=== PATIENT | female | born 1955 | race Caucasian/White ===

== ENCOUNTER 2016-12-07 08:55 | Outpatient (CLI) | payer BC ==
[~2016-12-07] VITALS: Ht 160 cm; Wt 90.3 kg
[~2016-12-07 08:55] MED LIST changes: -BUPR150T7 PO; -CETI10TA9 PO; -MELO7.5T46 PO
[2016-12-07 09:04] VITALS: BP 156/85
[2016-12-07] MEDS ORDERED: BUPR150T7 PO (09:14)
[2016-12-07] MEDS ORDERED: LISI1TAB6 PO (09:14)
[2016-12-07] MEDS ORDERED: CETI10TA9 PO (09:14)
[2016-12-07] MEDS ORDERED: MELO7.5T46 PO (09:14)
[2016-12-07 09:35] LABS: BILIRUBIN,URINE NEGATIVE (NEGATIVE); KETONES,URINE NEGATIVE (NEGATIVE); LEUKOCYTE ESTERASE ,URINE 1+ (NEGATIVE); NITRITE,URINE NEGATIVE (NEGATIVE); PH,URINE 6.5 (5-9); PROTEIN,URINE NEGATIVE (NEGATIVE); UROBILINOGEN,URINE NORMAL (NORMAL)
[2016-12-07 09:36] LABS: BASOPHILS % (AUTO) 1 % (0-10); EOSINOPHILS # (AUTO) 0.2 10^3/uL (0.0-0.3); EOSINOPHILS % (AUTO) 3 % (0-10); LYMPHOCYTES # (AUTO) 2.6 X 10^3 (1.0-4.0); LYMPHOCYTES % (AUTO) 37 % (12-44); MEAN CORPUSCULAR HEMOGLOBIN 31 PG (25-34); MEAN CORPUSCULAR HGB CONC 33 G/DL (32-36); MEAN CORPUSCULAR VOLUME 94 FL (80-99); MEAN PLATELET VOLUME 8.6 FL (7.4-10.4); MONOCYTES # (AUTO) 0.7 X 10^3 (0.0-1.0); MONOCYTES % (AUTO) 9 % (0-12); NEUTROPHILS # (AUTO) 3.7 X 10^3 (1.8-7.8); NEUTROPHILS % (AUTO) 51 % (42-75); PLATELET COUNT 438 10^3/uL (130-400); RED BLOOD COUNT 4.22 10^6/uL (4.35-5.85); RED CELL DISTRIBUTION WIDTH 12.7 % (10.0-14.5); WHITE BLOOD COUNT 7.2 10^3/uL (4.3-11.0)
[2016-12-07 09:47] LABS: WBC,URINE RARE /HPF
[2016-12-07 09:55] LABS: ANION GAP 9 MMOL/L (5-14); BLOOD UREA NITROGEN 14 MG/DL (7-18); BUN/CREATININE RATIO 15 (0-20); CALCIUM 9.7 MG/DL (8.5-10.1); CARBON DIOXIDE 27 MMOL/L (21-32); CHLORIDE 102 MMOL/L (98-107); CREATININE SERUM 0.92 MG/DL (0.60-1.30); GFR ESTIMATED > 60; GLUCOSE 105 MG/DL (70-105); HEMOLYSIS NN 5 (0); ICTERUS NN 1.1 (0); LIPEMIA NN 6 (0); POTASSIUM 4.2 MMOL/L (3.6-5.0); SODIUM 138 MMOL/L (135-145)
== END 2016-12-07 09:27 | disposition home or self-care (01) ==
LOC: PREOP 08:55
PROVIDERS: ATTEND Obstetrics & Gynecology
DX: Z01.812 Encounter for preprocedural laboratory examination (principal); Z11.2 Encounter for screening for other bacterial diseases; N81.2 Incomplete uterovaginal prolapse; N39.3 Stress incontinence (female) (male)
CPT/HCPCS: 36415; 80048; 81000; 85025; 86850; 86900; 86901; 87081

== ENCOUNTER → 2016-12-07 | Outpatient (CLI) | payer BC ==
[~2016-12-07] MED LIST: ACYC200C PO; ASP81TEC PO; BUPR150T PO; BUPR150T6 PO; BUPR150T7 PO; CALC-78 PO; CETI10CA PO; CETI10TA9 PO; CIPR500T4 PO; ESTR1TAB15 PO; ESTR1TAB76 PO; FLUT9.9S NS; HYDR-3730 PO; LISI10TA2 PO; LISI1TAB6 PO; MELO15TA39 PO; MELO7.5T46 PO; MIRA25TA PO; MTF500T PO; NAPR220C11 PO; NEBI5TAB8 PO; NITR100C3 PO; NTR50C PO; OXYC-12 PO; PANT40VI7 PO; SOLI10TA4 PO
--- NOTE | 2016-12-07 08:24 | Diagnostic Imaging Report ---
Left breast diagnostic mammogram. CAD is utilized. The current study was also evaluated with a Computer Aided Detection (CAD) system. COMPARISON: 06/14/16. FINDINGS: The left breast demonstrate scattered fibroglandular densities. There are occasional benign-appearing calcifications seen. The previously seen focal asymmetry in the medial aspect of the left breast is less prominent on this exam with suggestion of a faint smaller nodule that has a central notch likely representing an intramammary lymph node. Impression: Smaller now faint focal asymmetry in the medial aspect of the left breast is likely an intramammary lymph node. Ultrasound evaluation pending. BI-RADS 0. ACR BI-RADS Category 0: Incomplete. (Needs additional imaging evaluation). Result letter will be mailed to the patient. Note: At least 10% of breast cancer is not imaged by mammography. Dictated by: Dictated on workstation # [id number]
--- NOTE | 2016-12-07 09:19 | Diagnostic Imaging Report ---
EXAMINATION: Left breast ultrasound. INDICATION: Followup lesion at the 10:30 o'clock position. FINDINGS: The previously seen lesion at the 10:30 o'clock position 7 cm from the nipple has resolved with no definite remaining abnormality seen. IMPRESSION: Negative study. Annual screening mammography is recommended. ACR BI-RADS Category 2: Benign findings. Dictated by: Dictated on workstation # [id number]
== END ==
LOC: RAD 08:01
PROVIDERS: ATTEND Nurse Practitioner
DX: R92.8 Other abnormal and inconclusive findings on diagnostic imaging of breast (principal)
CPT/HCPCS: 76642

== ENCOUNTER 2016-12-14 06:00 | Day surgery (SDC) | payer BC ==
[~2016-12-14] VITALS: Ht 160 cm; Wt 90.3 kg
[~2016-12-14 06:00] MED LIST changes: +BUPR150T7 PO; +CETI10TA9 PO; +MELO7.5T46 PO
[2016-12-14] MEDS ORDERED: metroNIDAZOLE 500MG/100ML IVPB 100 ML ONE (06:15)
[2016-12-14] MEDS ORDERED: ceFAZolin 1,000 MG (ANCEF) VIAL ONE (06:15)
[2016-12-14] MEDS ORDERED: NS (IVPB) 50 ML ONE (06:15)
[2016-12-14 06:43] VITALS: BP 142/84
[2016-12-14] MEDS: LACTATED RINGERS 1,000 ML IV PRN ×2 (06:47→08:55)
[2016-12-14] MEDS ORDERED: ONDANSETRON 4 MG/2 ML (SDV) Z0FRAN ONE (06:50)
[2016-12-14] MEDS ORDERED: SEVOFLURANE (ULTANE) 15 ML INHAL SOLN ONE ×13 (06:50→11:08)
[2016-12-14] MEDS ORDERED: fentaNYL INJECTION 250 MCG/5 ML AMP ONE (06:50)
[2016-12-14] MEDS ORDERED: LACTATED RINGERS 1,000 ML IV ONE ×2 (06:50→08:36)
[2016-12-14] MEDS ORDERED: LIDOCAINE PF 2% 5 ML (XYLOCAINE) VIAL ONE (06:50)
[2016-12-14] MEDS ORDERED: proPOfol 200 MG/20 ML (DIPRIVAN) VIAL IV ONE (06:50)
[2016-12-14] MEDS ORDERED: ROCURONIUM 50 MG/5 ML (ZEMURON) VIAL IV ONE ×2 (06:50→09:36)
[2016-12-14] MEDS ORDERED: MIDAZOLAM 2 MG/2 ML (VERSED) VIAL ONE (06:50)
[2016-12-14] MEDS ORDERED: metroNIDAZOLE 500 MG/100 ML IVPB (PRE-MIX) IV ONE (07:00)
[2016-12-14] MEDS ORDERED: ceFAZolin 1 GM/NS 50 ML IVPB IV ONE ×2 (07:00)
--- NOTE | 2016-12-14 07:14 | History & Physical-Surgical ---
HPO-Surgical History of Present Illness Chief Complaint: Incomplete pelvic prolapse Diagnosis/Surgical Indication: Incomplete Pelvic Prolapse, stress incontinence Procedure: ROBOTIC HYSTERECTOMY WITH BSO, ANTERIOR AND POSTERIOR COLPORRHAPHY , PUBOVAGINAL SLING Date of Surgery: Dec 14, 2016 Weight (Pounds): 199 Weight (Ounces): 0.0 Height (Feet): 5 Height (Inches): 3.00 Allergies and Home Medications Allergies Coded Allergies: ibuprofen (Verified Allergy, Severe, LUMP IN THROAT, 02/17/15) Home Medications Bupropion HCl 150 Mg Tab.er.24h, 150 MG PO DAILY, (Reported) Cetirizine HCl 10 Mg Tablet, 10 MG PO DAILY, (Reported) Lisinopril/Hydrochlorothiazide 1 Each Tablet, 1 EACH PO DAILY, (Reported) Meloxicam 7.5 Mg Tablet, 7.5 MG PO DAILY, (Reported) Past Lalfdrz-Pghphu-Cjkukr Hx Patient Social History Marrital Status: Alcohol Use: Denies Use Recreational Drug Use: No Smoking Status: Never a Smoker Recent Foreign Travel: No Contact w/other who traveled: No Recent Hopitalizations: No Recent Infectious Disease Expo: No Immunizations Up To Date Tetanus Booster (TDap): More than 5yrs Date of Pneumonia Vaccine: Jun 08, 2012 Date of Influenza Vaccine: Mar 27, 2013 Seasonal Allergies Seasonal Allergies: Yes Surgeries HX Surgeries: Yes (Uterine ablation, left ankle surgery, left meniscus, left rotator cuff, ) Surgeries: Gallbladder Respiratory Hx Respiratory Disorders: No Cardiovascular Hx Cardiovascular Disorders: Yes Cardiac Disorders: Hypertension Neurological Hx Neurological Disorders: No Reproductive System : No Hx Reproductive Disorders: Yes Sexually Transmitted Disease: No HIV/AIDS: No Female Reproductive Disorders: Denies Genitourinary Hx Genitourinary Disorders: Yes Genitourinary Disorders: UTI-Chronic Gastrointestinal Hx Gastrointestinal Disorders: No Musculoskeletal Hx Musculoskeletal Disorders: Yes (left ankle break) Musculoskeletal Disorders: Arthritis, Fractures Endocrine Hx Endocrine Disorders: No Endocrine Disorders: Diabetes, Non-Insulin dep HEENT HX ENT Disorders: No Hearing Impairment: Denies Cancer Hx Cancer: Yes Cancer: Skin Psychosocial Hx Psychiatric Problems: No Behavioral Health Disorders: Depression Integumentary HX Skin/Integumentary Disorder: No (2 skin cancer's removed) Blood Transfusions Hx Blood Disorders: No Adverse Reaction to a Blood Tr: No Family Medical History Family Hx: Cancer 03 MOTHER Family history: Diabetes mellitus 03 FATHER 09 BROTHER Family history: Hypertension 03 MOTHER Myocardial infarction 03 FATHER Exam Vital Signs Vital Signs 12/14/16 06:43 Temp 98.7 Pulse 66 Resp 18 B/P (MAP) 142/84 Pulse Ox 97 O2 Delivery Room Air Capillary Refill : General Appearance: Alert, Oriented X3 Respiratory: Clear to Auscultation, Normal Air Movement Cardiovascular: Regular Rate Abdominal: Other (pelvic exam will be repeated during surgery) Assessment/Plan Assessment and Plan Incomplete pelvic prolapse Stress incontinence Plan: Robotic assisted vaginal hysterectomy, anterior posterior colporrhaphy, Solyx pubovaginal sling This will be done on 12/14/16. Patient has completed childbearing (she is menopausal) and understands that once uterus has been removed, she will be unable to bear children. The risks of the procedure include but are not limited to: injury to bowel, bladder and ureter, infection, bleeding, risks associated with anesthesia, blood clot/dvt. There is also a 40% chance of reoperation in the future, need for medication for urgency postoperatively, urinary retention. Problems: MANNIE BOWLES DO Dec 14, 2016 07:14
[2016-12-14] MEDS ORDERED: ESTROGENS CONJ. CREAM 30 GM (PREMARIN) TUBE ONE (07:15)
[2016-12-14] MEDS ORDERED: BUP/EPI 0.25% 1:200,000 (MARCAINE) 10 ML VIAL IJ ONE (07:15)
[2016-12-14] MEDS ORDERED: OXYTOCIN (PITOCIN) 10 UNIT/ML VIAL ONE (07:34)
[2016-12-14] MEDS ORDERED: NS (IVPB) 100 ML ONE (07:35)
[2016-12-14] MEDS ORDERED: VASOPRESSIN INJECTION 20 UNIT/ML VIAL ONE (07:37)
--- NOTE | 2016-12-14 07:47 | Progress Note-Pre Operative ---
Pre-Operative Progress Note H&P Reviewed The H&P was reviewed, patient examined and no changes noted. Date Seen by Provider: Dec 14, 2016 Time Seen by Provider: 07:30 Date H&P Reviewed: Dec 14, 2016 Time H&P Reviewed: 07:15 Pre-Operative Diagnosis: incomplete genital prolapse, stress incontinence MANNIE BOWLES DO Dec 14, 2016 07:47
[2016-12-14] MEDS: KETOROLAC 30 MG/ML VIAL IV PRN ×2 (11:00→17:45)
[2016-12-14] MEDS ORDERED: ANTACID SUSP 30 ML UDC (MYLANTA) PO PRN (11:15)
[2016-12-14] MEDS ORDERED: KETOROLAC 30 MG/ML VIAL IVP PRN (11:15)
[2016-12-14] MEDS ORDERED: HYDROcodone/APAP 7.5 MG/325 MG (LORTAB, LORCET PLUS) TABLET PO PRN (11:15)
[2016-12-14] MEDS ORDERED: SIMETHICONE 80 MG (MYLICON) CHEW PO PRN (11:15)
[2016-12-14] MEDS ORDERED: DOCUSATE SODIUM 100 MG (COLACE) CAP PO PRN (11:15)
[2016-12-14] MEDS ORDERED: ONDANSETRON 4 MG/2 ML (SDV) Z0FRAN IV PRN (11:15)
--- NOTE | 2016-12-14 11:22 | Operative Report ---
Operative Report Date of Procedure/Surgery Dec 14, 2016 Surgeon (s) MANNIE BOWLES DO Fifth Hand (s): Kimmie Loredo APRN. Fifth Hand necessary to retract important neurovascular st Post-Operative Diagnosis Incomplete genital prolapse NIKIA Procedure Performed RaTH, BSO, Anterior posterior colporrhaphy, perineorrhaphy, Solyx vaginal sling Description of Procedure Anesthesia Type: General Estimated blood loss (mL): 200 Specimen(s) collected/removed uterus tubes and ovaries Packing: vaginal with estrace cream Allergies and Home Medications Allergies Coded Allergies: naproxen (Verified Allergy, Severe, lump in throat, 12/14/16) able to take other antiinflammatories. Only had reaction to Aleve Home Medications Bupropion HCl 150 Mg Tab.er.24h, 150 MG PO DAILY, (Reported) Cetirizine HCl 10 Mg Tablet, 10 MG PO DAILY, (Reported) Lisinopril/Hydrochlorothiazide 1 Each Tablet, 1 EACH PO DAILY, (Reported) Meloxicam 7.5 Mg Tablet, 7.5 MG PO DAILY, (Reported) MANNIE BOWLES DO Dec 14, 2016 11:22
[2016-12-14] MEDS ORDERED: lisINopril 10 MG (PRINIVIL) TAB PO SCH (11:30)
[2016-12-14] MEDS ORDERED: HYDROmorphone (DILAUDID) 2 MG/ML VIAL IVP PRN ×2 (11:45→16:30)
[2016-12-14] MEDS ORDERED: ONDANSETRON 4 MG/2 ML (SDV) Z0FRAN IVP PRN (11:45)
[2016-12-14] MEDS: morphine INJ 10 MG/ML 1ML (SYR OR VIAL) IVP PRN ×2 (11:52→11:58)
[2016-12-14 12:35] VITALS: BP 122/70
[2016-12-14] MEDS: LACTATED RINGERS 1,000 ML IV SCH ×4 (12:48→22:10)
[2016-12-14 14:12] VITALS: BP 113/65
[2016-12-14] MEDS: buPROPion SR 150 MG (WELLBUTRIN SR) TAB PO SCH (14:15)
[2016-12-14] MEDS: lisINopril 10 MG (PRINIVIL) TAB PO SCH (14:16)
[2016-12-14] MEDS: HYDROCHLOROTHIAZIDE 25 MG (HCTZ) TAB PO SCH (14:16)
[2016-12-14] MEDS ORDERED: PROMETHAZINE INJ 25 MG/ML (PHENERGAN) AMP IVP PRN (16:30)
[2016-12-14 17:45] VITALS: BP 117/66
[2016-12-14 20:00] VITALS: BP 114/68
[2016-12-14 20:03] LABS: ANION GAP 11 MMOL/L (5-14); BLOOD UREA NITROGEN 12 MG/DL (7-18); BUN/CREATININE RATIO 13 (0-20); CALCIUM 8.9 MG/DL (8.5-10.1); CARBON DIOXIDE 24 MMOL/L (21-32); CHLORIDE 103 MMOL/L (98-107); CREATININE SERUM 0.93 MG/DL (0.60-1.30); GFR ESTIMATED > 60; GLUCOSE 149 MG/DL (70-105); HEMOLYSIS 4 (-100-29); ICTERUS 0.6 (-100-1.9); LIPEMIA 1 (-100-49); POTASSIUM 4.2 MMOL/L (3.6-5.0); SODIUM 138 MMOL/L (135-145)
[2016-12-14] MEDS ORDERED: NS IV 500 ML 500 ML IV SCH (21:15)
[2016-12-14] MEDS ORDERED: FUROSEMIDE 40 MG/4 ML INJ (LASIX) IVP ONE (21:15)
[2016-12-15] VITALS: BP 110/64
[2016-12-15] MEDS: LACTATED RINGERS 1,000 ML IV SCH ×2 (02:14→06:25)
[2016-12-15] MEDS ORDERED: IBUPROFEN 600 MG (MOTRIN) TAB PO PRN (04:00)
[2016-12-15 04:19] VITALS: BP 108/57
[2016-12-15 05:28] LABS: ANION GAP 12 MMOL/L (5-14); BLOOD UREA NITROGEN 12 MG/DL (7-18); BUN/CREATININE RATIO 15 (0-20); CALCIUM 8.5 MG/DL (8.5-10.1); CARBON DIOXIDE 23 MMOL/L (21-32); CHLORIDE 103 MMOL/L (98-107); CREATININE SERUM 0.82 MG/DL (0.60-1.30); GFR ESTIMATED > 60; GLUCOSE 123 MG/DL (70-105); HEMOLYSIS 6 (-100-29); ICTERUS 0.6 (-100-1.9); LIPEMIA 14 (-100-49); POTASSIUM 3.7 MMOL/L (3.6-5.0); SODIUM 138 MMOL/L (135-145)
[2016-12-15 08:00] VITALS: BP 120/67
--- NOTE | 2016-12-15 08:18 | Progress Note-Standard ---
Standard Progress Note Progress Notes/Assess & Plan Date Seen 12/15/16 Time Seen by Provider: 08:05 Assess & Plan/Chief Complaint POD#1 Pt without complaints other than bladder pressure, "feeling constant need to pee " Pain controlled Has ambulated and voided 3x (missed hat last time) Has tolerated diet without n/v Vaginal packing removed by RN O: Vital Sign - Last 12Hours 12/14/16 12/15/16 12/15/16 21:00 00:00 04:19 Temp 97.3 97.9 Pulse 65 85 Resp 16 19 B/P (MAP) 110/64 108/57 Pulse Ox 97 97 O2 Delivery Room Air Room Air Room Air Intake and Output 12/15/16 00:00 Intake Total 1000 ml Output Total 280 ml Balance 720 ml Gen NAD Abd soft nttp lap sites covered with bandages A/P: 61 y/o s/p RaTH, BSO, Anterior posterior colporrhaphy, perineorrhaphy, Solyx vaginal sling by Dr. Jimenez, POD#1 Routine post-op care Asked RN to obtain PVR after next void to ensure no retention SLIV Dr. Jimenez to see patient this AM prior to discharge Labs Laboratory Tests 12/14/16 19:42 12/15/16 04:36 JESSICA PLATA MD Dec 15, 2016 08:18
[2016-12-15] MEDS: HYDROCHLOROTHIAZIDE 25 MG (HCTZ) TAB PO SCH (08:42)
[2016-12-15] MEDS: lisINopril 10 MG (PRINIVIL) TAB PO SCH (08:43)
[2016-12-15] MEDS: buPROPion SR 150 MG (WELLBUTRIN SR) TAB PO SCH (08:43)
[2016-12-15] MEDS ORDERED: buPROPion XL 150 MG (WELLBUTRIN XL) NON-FORM PO SCH (09:00)
[2016-12-15] MEDS ORDERED: SIME80TA16 PO (10:06)
[2016-12-15] MEDS ORDERED: HYDR-3816 PO (10:06)
[2016-12-15] MEDS ORDERED: DOCU100C37 PO (10:06)
[2016-12-15] MEDS ORDERED: IBUP-1773 PO (10:06)
--- NOTE | 2016-12-15 11:54 | Discharge Inst-Women's Service ---
Discharge Inst-Women's Serv Depart Medication/Instructions New, Converted or Re-Newed RX: RX on Chart Instructions no lifting over 25 lbs. Follow up with Dr. Navarro regarding elevated blood sugars Keep dressings intact unless soiled or wet Final Diagnosis genital prolapse stress incontinence hyperglycemia hypertension Consults/Follow Up Additional Follow Up: Yes (1 weeks with Jimenez/Kimmie and 10-12 weeks with Jimenez. Hold estrace cream until about 4-6 weeks post op) Activity Driving Instructions: No Driving for 1 Week NO SMOKING: NO SMOKING Nothing Inside Vagina: No Douching, No [place], No Tampons Diet Discharge Diet: ADA Diet Symptoms to Report to : Swelling Increased, Bleeding Excessive, Pain Increased, Fever Over 101 Degrees F, Vaginal Bleeding Increase, Vaginal Discharge Foul For Any Problems or Questions: Contact Your Physician Skin/Wound Care Infection Signs and Symptoms: Increased Redness, Foul Odor of Wound, Increased Drainage, Skin Itchy or Has a Rash, Increased Swelling, Temperature Above 101 F Operative Area Clean and Dry: Keep Incision Clean/Dry Bathing Instructions: MANNIE Bronson DO Dec 15, 2016 11:54 am
[2016-12-15 12:40] VITALS: BP 108/57
[2016-12-15] MEDS ORDERED: HYDROCHLOROTHIAZIDE 25 MG (HCTZ) TAB PO SCH (13:00)
[2016-12-16] MEDS ORDERED: MELOXICAM 7.5 MG (MOBIC) TABLET PO SCH (09:00)
--- OUTSIDE RECORDS SUMMARY | 2016-12-16 14:15 | XMS REPORT | Continuity of Care Document ---
Author Author [facility] Organization [facility] Address Unknown Phone Unavailable Allergies Active Description Code Type Severity Reaction Onset Reported/Identified Relationship to Patient Clinical Status Yes No Known Drug Allergies [id number] Drug Allergy Unknown N/ A 05/07/2013 Yes ibuprofen [id number] Drug Allergy Severe LUMP IN THROAT 10/17/2015 Yes naproxen [id number] Drug Allergy Severe lump in throat 12/14/2016 Medications Problems Date Dx Coded Attending Type Code Diagnosis Diagnosed By 01/25/2014 JAMAL KOHLI MD Ot 535.50 UNSP GASTRITIS GASTRODUODENITIS W/O ME 02/04/2015 ELOINA PHIPPS MD Ot 401.9 HYPERTENSION NOS 02/04/2015 ELOINA PHIPPS MD Ot 599.0 URIN TRACT INFECTION NOS 02/04/2015 ELOINA PHIPPS MD Ot 729.5 PAIN IN LIMB 02/04/2015 ELOINA PHIPPS MD Ot 959.9 INJURY-SITE NOS 02/04/2015 ELOINA PHIPSP MD Ot E000.8 OTHER EXTERNAL CAUSE STATUS 02/04/2015 ELOINA PHIPPS MD Ot E928.9 ACCIDENT NOS 02/04/2015 ELOINA PHIPPS MD Ot V58.69 OTH MED,LT,CURRENT USE 02/21/2015 PINEDA DPM, SEAN P Ot 728.71 PLANTAR FIBROMATOSIS 07/03/2015 PINEDA DPM, SEAN P Ot 728.71 07/03/2015 PINEDA DPM, SEAN P Ot V72.84 10/08/2015 PINEDA DPM, SEAN P Ot 728.71 10/08/2015 PINEDA DPM, SEAN P Ot V72.84 10/10/2015 JAMAL KOHLI MD Ot Z01.818 ENCOUNTER FOR OTHER PREPROCEDURAL EXAMIN 10/17/2015 JAMAL KOHLI MD Ot R19.7 DIARRHEA, UNSPECIFIED 10/17/2015 JAMAL KOHLI MD Ot Z12.11 ENCOUNTER FOR SCREENING FOR MALIGNANT NE 10/20/2015 JAMAL KOHLI MD Ot R19.7 DIARRHEA, UNSPECIFIED 10/20/2015 JAMAL KOHLI MD Ot Z12.11 ENCOUNTER FOR SCREENING FOR MALIGNANT NE 10/23/2015 JAMAL KOHLI MD Ot R19.7 DIARRHEA, UNSPECIFIED 10/23/2015 JAMAL KOHLI MD Ot Z12.11 ENCOUNTER FOR SCREENING FOR MALIGNANT NE 02/20/2016 PINEDA DPM, SEAN P Ot 728.71 PLANTAR FIBROMATOSIS 02/20/2016 PINEDA DPM, SEAN P Ot V72.84 EXAM PRE-OPERATIVE NOS 02/20/2016 JAMAL KOHLI MD Ot Z01.818 ENCOUNTER FOR OTHER PREPROCEDURAL EXAMIN 05/26/2016 PINEDA DPM, SEAN P Ot 728.71 PLANTAR FIBROMATOSIS 05/26/2016 PINEDA DPM, SEAN P Ot V72.84 EXAM PRE-OPERATIVE NOS 05/26/2016 JAMAL KOHLI MD Ot Z01.818 ENCOUNTER FOR OTHER PREPROCEDURAL EXAMIN 05/27/2016 WANDA BERRY PHOTOENGRAVING RETOUCHER Ot Z12.31 ENCNTR SCREEN MAMMOGRAM FOR MALIGNANT NE 06/09/2016 QUICK WANDA W PHOTOENGRAVING RETOUCHER Ot Z12.31 ENCNTR SCREEN MAMMOGRAM FOR MALIGNANT NE 06/16/2016 WANDA BERRY PHOTOENGRAVING RETOUCHER Ot R92.8 OTH ABN AND INCONCLUSIVE FINDINGS ON DX 07/07/2016 QUICK WANDA W [employer]OTOENGRAVING RETOUCHER Ot R92.8 OTH ABN AND INCONCLUSIVE FINDINGS ON DX 12/07/2016 WILBUR DO MANNIE C Ot N39.3 STRESS INCONTINENCE (FEMALE) (MALE) 12/07/2016 WILBUR DO MANNIE C Ot N81.2 INCOMPLETE UTEROVAGINAL PROLAPSE 12/07/2016 WILBUR DO MANNIE C Ot Z01.812 ENCOUNTER FOR PREPROCEDURAL LABORATORY E 12/07/2016 WILBUR DO MANNIE C Ot Z11.2 ENCOUNTER FOR SCREENING FOR OTHER BACTER 12/08/2016 WILBUR DO MANNIE C Ot N39.3 STRESS INCONTINENCE (FEMALE) (MALE) 12/08/2016 BOWLES DO MANNIE C Ot N81.2 INCOMPLETE UTEROVAGINAL PROLAPSE 12/08/2016 WILBUR DO MANNIE C Ot Z01.812 ENCOUNTER FOR PREPROCEDURAL LABORATORY E 12/08/2016 MANNIE BOWLES DO Ot Z11.2 ENCOUNTER FOR SCREENING FOR OTHER BACTER 12/10/2016 SEAN PINEDA DPM Ot 728.71 PLANTAR FIBROMATOSIS 12/10/2016 SEAN PINEDA DPM Ot V72.84 EXAM PRE-OPERATIVE NOS 12/10/2016 SEUN MARTÍNEZ, JAMAL Vee Ot Z01.818 ENCOUNTER FOR OTHER PREPROCEDURAL EXAMIN 12/10/2016 WANDA BERRY Ot Z12.31 ENCNTR SCREEN MAMMOGRAM FOR MALIGNANT NE 12/10/2016 WANDA BERRY Ot R92.8 OTH ABN AND INCONCLUSIVE FINDINGS ON DX 12/10/2016 WANDA BERRY Ot R92.8 OTH ABN AND INCONCLUSIVE FINDINGS ON DX 12/13/2016 MANNIE BOWLES DO Ot N39.3 STRESS INCONTINENCE (FEMALE) (MALE) 12/13/2016 MANNIE BOWLES DO Ot N81.2 INCOMPLETE UTEROVAGINAL PROLAPSE 12/13/2016 MANNIE BOWLES DO Ot Z01.812 ENCOUNTER FOR PREPROCEDURAL LABORATORY E 12/13/2016 MANNIE BOWLES DO Ot Z11.2 ENCOUNTER FOR SCREENING FOR OTHER BACTER Procedures Results Test Result Range Complete blood count (CBC) with automated white blood cell (WBC) differential - 12/07/16 09:18 Blood leukocytes automated count (number/volume) 7.2 10*3/ uL 4.3-11.0 Blood erythrocytes automated count (number/volume) 4.22 10*6 /uL 4.35-5.85 Venous blood hemoglobin measurement (mass/volume) 13.1 g/dL 11.5-16.0 Blood hematocrit (volume fraction) 40 % 35-52 Automated erythrocyte mean corpuscular volume 94 [foz_us] 80-99 Automated erythrocyte mean corpuscular hemoglobin (mass per erythrocyte) 31 pg 25-34 Automated erythrocyte mean corpuscular hemoglobin concentration measurement ( mass/volume) 33 g/dL 32-36 Automated erythrocyte distribution width ratio 12.7 % 10.0-14.5 Automated blood platelet count (count/volume) 438 10*3/uL 130-400 Automated blood platelet mean volume measurement 8.6 [foz_us ] 7.4-10.4 Automated blood neutrophils/100 leukocytes 51 % 42-75 Automated blood lymphocytes/100 leukocytes 37 % 12-44 Blood monocytes/100 leukocytes 9 % 0-12 Automated blood eosinophils/100 leukocytes 3 % 0-10 Automated blood basophils/100 leukocytes 1 % 0-10 Blood neutrophils automated count (number/volume) 3.7 10*3 1.8-7.8 Blood lymphocytes automated count (number/volume) 2.6 10*3 1.0-4.0 Blood monocytes automated count (number/volume) 0.7 10*3 0.0-1.0 Automated eosinophil count 0.2 10*3/uL 0.0-0.3 Automated blood basophil count (count/volume) 0.0 10*3/uL 0.0-0.1 Complete urinalysis with reflex to culture - 12/07/16 09:18 Urine color determination YELLOW NRG Urine clarity determination CLEAR NRG Urine pH measurement by test strip 6.5 5 -9 Specific gravity of urine by test strip 1.010 1.016-1.022 Urine protein assay by test strip, semi-quantitative NEGATIVE NEGATIVE Urine glucose detection by automated test strip NEGATIVE NEGATIVE Erythrocytes detection in urine sediment by light microscopy NEGATIVE NEGATIVE Urine ketones detection by automated test strip NEGATIVE NEGATIVE Urine nitrite detection by test strip NEGATIVE NEGATIVE Urine total bilirubin detection by test strip NEGATIVE NEGATIVE Urine urobilinogen measurement by automated test strip (mass/volume) NORMAL NORMAL Urine leukocyte esterase detection by dipstick 1+ NEGATIVE Automated urine sediment erythrocyte count by microscopy (number/high power field) NONE NRG Automated urine sediment leukocyte count by microscopy (number/high power field ) RARE NRG Bacteria detection in urine sediment by light microscopy NEGATIVE NRG Squamous epithelial cells detection in urine sediment by light microscopy 2-5 NRG Crystals detection in urine sediment by light microscopy NONE NRG Casts detection in urine sediment by light microscopy NONE NRG Mucus detection in urine sediment by light microscopy NEGATIVE NRG Complete urinalysis with reflex to culture NO NRG Whole blood basic metabolic panel - 12/07/16 09:18 Serum or plasma sodium measurement (moles/volume) 138 mmol/ L 135-145 Serum or plasma potassium measurement (moles/volume) 4.2 mmol/L 3.6-5.0 Serum or plasma chloride measurement (moles/volume) 102 mmol /L 98-107 Carbon dioxide 27 mmol/L 21-32 Serum or plasma anion gap determination (moles/volume) 9 mmol/L 5-14 Serum or plasma urea nitrogen measurement (mass/volume) 14 mg/dL 7-18 Serum or plasma creatinine measurement (mass/volume) 0.92 mg /dL 0.60-1.30 Serum or plasma urea nitrogen/creatinine mass ratio 15 0-20 Serum or plasma creatinine measurement with calculation of estimated glomerular filtration rate > NRG Serum or plasma glucose measurement (mass/volume) 105 mg/dL 70-105 Serum or plasma calcium measurement (mass/volume) 9.7 mg/dL 8.5-10.1 Blood type T Indirect antibody screen panel - 12/07/16 09:18 ABO+Rh group BN NRG Blood group antibody screen NEGATIVE NRG Methicillin resistant Staphylococcus aureus (MRSA) screening culture - 09:18 Methicillin resistant Staphylococcus aureus (MRSA) screening culture NEG NRG Blood type T Indirect antibody screen panel - 12/14/16 06:33 ABO+Rh group BN NRG Transfusion band number [id number] NRG Blood group antibody screen NEGATIVE NRG Whole blood basic metabolic panel - 12/14/16 19:42 Serum or plasma sodium measurement (moles/volume) 138 mmol/ L 135-145 Serum or plasma potassium measurement (moles/volume) 4.2 mmol/L 3.6-5.0 Serum or plasma chloride measurement (moles/volume) 103 mmol /L 98-107 Carbon dioxide 24 mmol/L 21-32 Serum or plasma anion gap determination (moles/volume) 11 mmol/L 5-14 Serum or plasma urea nitrogen measurement (mass/volume) 12 mg/dL 7-18 Serum or plasma creatinine measurement (mass/volume) 0.93 mg /dL 0.60-1.30 Serum or plasma urea nitrogen/creatinine mass ratio 13 0-20 Serum or plasma creatinine measurement with calculation of estimated glomerular filtration rate > NRG Serum or plasma glucose measurement (mass/volume) 149 mg/dL 70-105 Serum or plasma calcium measurement (mass/volume) 8.9 mg/dL 8.5-10.1 Whole blood basic metabolic panel - 12/15/16 04:36 Serum or plasma sodium measurement (moles/volume) 138 mmol/ L 135-145 Serum or plasma potassium measurement (moles/volume) 3.7 mmol/L 3.6-5.0 Serum or plasma chloride measurement (moles/volume) 103 mmol /L 98-107 Carbon dioxide 23 mmol/L 21-32 Serum or plasma anion gap determination (moles/volume) 12 mmol/L 5-14 Serum or plasma urea nitrogen measurement (mass/volume) 12 mg/dL 7-18 Serum or plasma creatinine measurement (mass/volume) 0.82 mg /dL 0.60-1.30 Serum or plasma urea nitrogen/creatinine mass ratio 15 0-20 Serum or plasma creatinine measurement with calculation of estimated glomerular filtration rate > NRG Serum or plasma glucose measurement (mass/volume) 123 mg/dL 70-105 Serum or plasma calcium measurement (mass/volume) 8.5 mg/dL 8.5-10.1 Encounters ACCT No. Visit Date/Time Discharge Status Pt. Type Provider Facility Loc./Unit Complaint [id number] 12/07/2016 08:55:00 2016 09:27:00 DIS Outpatient MANNIE BOWLES DO [facility] PREOP GENITAL PROLAPSE, CYSTOCELE, RECTOCELE , NIKIA [id number] 10/17/2015 07:32:00 2015 10:18:00 DIS Outpatient JAMAL KOHLI MD [facility] SCREENING [id number] 02/21/2015 05:55:00 2014 10:50:00 DIS Outpatient SEAN PINEDA DPM [facility] PLANTAR FASCITIS LEFT FOOT [id number] 02/17/2015 05:39:00 2014 23:59:59 CLS Outpatient SEAN PINEDA DPM [facility] PREOP PLANTAR FASCITIS LEFT FOOT [id number] 02/04/2015 00:41:00 2014 01:28:00 DIS Emergency ELOINA PHIPPS MD [facility] ER LEFT ARM PAIN [id number] 04/23/2014 08:26:00 2013 23:59:59 CLS Outpatient [id number] 01/25/2014 08:28:00 2013 12:10:00 DIS Outpatient JAMAL KOHLI MD [facility] DYSPHASIA [id number] 01/24/2014 15:06:00 2013 23:59:59 CLS Outpatient [id number] 12/24/2013 10:53:00 2013 23:59:59 CLS Outpatient [id number] 08/13/2013 13:53:00 2013 23:59:59 CLS Outpatient [id number] 05/07/2013 11:51:00 2012 11:35:00 DIS Inpatient [id number] 12/14/2016 06:00:00 ACT Outpatient MANNIE BOWLES DO [facility] WS GENITAL PROLAPSE, CYSTOCELE, RECTOCELE, NIKIA [id number] 11/30/2016 13:30:00 PEN Outpatient WANDA BERRY [facility] RAD ABNORMAL MAMMO R92.8 [id number] 06/14/2016 12:12:00 ACT Outpatient WANDA BERRY [facility] RAD ABNORMAL MAMMO [id number] 05/26/2016 10:44:00 ACT Outpatient WANDA BERRY [facility] RAD VISIT FOR SCREENING MAMMO [id number] 10/09/2015 05:48:00 ACT Outpatient SEUN MARTÍNEZ, JAMAL Vee [facility] PREOP SCREENING
== END 2016-12-15 12:40 | disposition home or self-care (01) ==
LOC: SDC 06:00 → WS 12:18 → SDC 12-15 12:40
PROVIDERS: ATTEND Obstetrics & Gynecology
DX: N81.2 Incomplete uterovaginal prolapse (principal); N39.3 Stress incontinence (female) (male); I10 Essential (primary) hypertension; E11.9 Type 2 diabetes mellitus without complications; F32.9 Major depressive disorder, single episode, unspecified
CPT/HCPCS: 36415; 80048; 94664

== ENCOUNTER → 2017-04-25 | Outpatient (CLI) | payer BC ==
[~2017-04-25] MED LIST changes: +DOCU100C37 PO; +HYDR-3816 PO; +IBUP-1773 PO; +SIME80TA16 PO
[2017-04-25 11:09] LABS: BILIRUBIN,URINE NEGATIVE (NEGATIVE); KETONES,URINE NEGATIVE (NEGATIVE); LEUKOCYTE ESTERASE ,URINE 2+ (NEGATIVE); NITRITE,URINE POSITIVE (NEGATIVE); PH,URINE 6 (5-9); PROTEIN,URINE 1+ (NEGATIVE); UROBILINOGEN,URINE NORMAL (NORMAL)
[2017-04-25 11:17] LABS: WBC,URINE 50-100 /HPF
== END ==
LOC: LAB 10:54
PROVIDERS: ATTEND Internal Medicine
DX: N39.0 Urinary tract infection, site not specified (principal)
CPT/HCPCS: 81000; 87077; 87088

== ENCOUNTER → 2021-08-27 | Outpatient (CLI) | payer BC, MEDICARE ==
[~2021-08-27] MED LIST changes: +BUPR150T24 PO; -BUPR150T7 PO; -CIPR500T4 PO; +CIPR500T5 PO; +HYDR-34 PO; -HYDR-3816 PO; +LISI1TAB44 PO
--- NOTE | 2021-08-28 09:20 | Diagnostic Imaging Report ---
INDICATION: Routine screening. COMPARISON: 12/20/2017 and 05/26/2016. TECHNIQUE: 2D and 3D bilateral screening mammography was performed with CAD. FINDINGS: Both breasts are heterogeneously dense, limiting the sensitivity of mammography. The parenchymal pattern is stable. No mass or malignant-appearing microcalcifications are seen. The axillae are unremarkable. IMPRESSION: No mammographic features suspicious for malignancy are identified. ACR BI-RADS Category 1: Negative. Result letter will be mailed to the patient. Note: At least 10% of breast cancer is not imaged by mammography. Dictated by: Dictated on workstation # [id number]
== END ==
LOC: RAD 14:45
PROVIDERS: ATTEND Obstetrics & Gynecology
DX: Z12.31 Encounter for screening mammogram for malignant neoplasm of breast (principal)
CPT/HCPCS: 77063; 77067